=== PATIENT | female | born 1980 | race Caucasian/White ===

== ENCOUNTER → 2016-10-12 | Outpatient (CLI) | payer OTHER ==
--- NOTE | 2016-10-12 16:11 | RAD ---
Right ankle radiographs History: Surgery 3 weeks earlier, fall today, pain. Comparison: Right ankle radiographs at [facility] 10/02/2016. Findings: AP, lateral, and oblique views of the right ankle, 4 images. Lateral fibular plate and multiple interlocking orthopedic screws are seen involving the distal fibular shaft fixating a comminuted fracture. There is a medial tibial orthopedic plate and multiple interlocking orthopedic screws. There is also 1 medial malleolar screw. Tibial hardware fixates a comminuted distal tibial shaft fracture as well as medial malleolar fracture. There is no change in alignment of the fractures. No acute fracture is identified. Impression: Post traumatic and post surgical changes of the distal tibia and fibula. No new abnormality is identified.
== END | disposition home or self-care (01) ==
LOC: LAB 14:45
PROVIDERS: ATTEND Orthopaedic Surgery
DX: S82.891E Other fracture of right lower leg, subsequent encounter for open fracture type I or II with routine healing (principal); M25.571 Pain in right ankle and joints of right foot; Z79.01 Long term (current) use of anticoagulants; W19.XXXD Unspecified fall, subsequent encounter
CPT/HCPCS: 36415; 73610; 85610

== ENCOUNTER → 2017-12-24 | Outpatient (CLI) | payer OTHER ==
[2017-12-24 10:44] LABS: BASO # 0.1 x10^3/uL (0.0-0.2); BASO % 1 % (0-3); EOS # 0.2 x10^3/uL (0.0-0.7); EOS % 2 % (0-3); HEMATOCRIT 42.8 % (36.0-47.0); HEMOGLOBIN 14.4 g/dL (12.0-15.5); LYMPH # 3.1 x10^3/uL (1.0-4.8); LYMPH % 32 % (24-48); MEAN CORPUSCULAR HEMOGLOBIN 30 pg (25-35); MEAN CORPUSCULAR HGB CONC 34 g/dL (31-37); MEAN CORPUSCULAR VOLUME 88 fL (79-100); MONO # 0.5 x10^3/uL (0.0-1.1); MONO % 5 % (0-9); NEUT # 5.7 x10^3uL (1.8-7.7); NEUT % 60 % (31-73); PLATELET COUNT 318 x10^3/uL (140-400); RED BLOOD COUNT 4.86 x10^6/uL (3.50-5.40); RED CELL DISTRIBUTION WIDTH 13.8 % (11.5-14.5); WHITE BLOOD COUNT 9.5 x10^3/uL (4.0-11.0)
[2017-12-24 11:19] LABS: ALBUMIN 3.8 g/dL (3.4-5.0); CALCIUM 8.9 mg/dL (8.5-10.1); CREATININE 0.9 mg/dL (0.6-1.0); GFR 69.7; POTASSIUM 3.9 mmol/L (3.5-5.1); TOTAL BILIRUBIN 0.3 mg/dL (0.2-1.0); TOTAL PROTEIN 7.6 g/dL (6.4-8.2)
== END | disposition home or self-care (01) ==
LOC: LAB 09:19
PROVIDERS: ATTEND Physician Assistant Medical
DX: E78.5 Hyperlipidemia, unspecified (principal)
CPT/HCPCS: 36415; 80053; 80061; 85025